=== PATIENT | female | born 1945 | race Caucasian/White ===

== ENCOUNTER 2022-05-01 14:02 | Emergency (ER) | payer SELFPAY ==
[~2022-05-01] VITALS: Ht 160 cm; Wt 63.5 kg
[2022-05-01 14:56] LABS: BASOPHILS ABSOLUTE AUTO 0.01 K/mm3 (0.00-0.23); BASOPHILS PERCENT AUTO 0 % (0-2); EOSINOPHILS PERCENT AUTO 0 % (0-6); Hematocrit 41.1 % (33.0-51.0); Hemoglobin 13.6 g/dL (11.5-16.0); IMMATURE GRAN ABSOLUTE AUTO 0.03 K/mm3 (0.00-0.10); IMMATURE GRAN PERCENT AUTO 0 % (0-1); LYMPHOCYTES ABSOLUTE AUTO 2.47 K/mm3 (0.84-5.20); LYMPHOCYTES PERCENT AUTO 23 % (21-46); MONOCYTES ABSOLUTE AUTO 0.57 K/mm3 (0.16-1.47); MONOCYTES PERCENT AUTO 5 % (4-13); Mean Corpuscular HGB 28.5 pg (26.0-34.0); Mean Corpuscular HGB Conc 33.1 g/dL (31.5-36.5); Mean Corpuscular Volume 86 fL (80-100); Mean Platelet Volume 9.4 fL (9.1-12.4); NEUTROPHILS ABSOLUTE AUTO 7.52 K/mm3 (1.96-9.15); NEUTROPHILS PERCENT AUTO 71 % (41-73); Platelet Count 317 K/mm3 (150-400); RDW Standard Deviation 47.3 fL (35.1-46.3); Red Blood Cell Count 4.78 M/mm3 (3.80-5.20)
[2022-05-01 15:15] LABS: Albumin, Blood 3.7 g/dL (3.4-5.0); Bilirubin, Total 0.4 mg/dL (0.1-1.0); Bun/Creatinine Ratio 22.2 (12.0-20.0); Calcium, Blood 9.4 mg/dL (8.5-10.1); Creatinine, Blood 0.95 mg/dL (0.40-1.00); Globulin, Blood 3.8 g/dL (2.2-4.0); Potassium, Blood 4.1 mmol/L (3.5-5.5); Total Protein, Blood 7.5 g/dL (6.4-8.2)
[2022-05-01] MEDS ORDERED: METF500 PO (18:36)
[2022-05-01] MEDS ORDERED: ATOR10 PO (18:36)
[2022-05-01] MEDS ORDERED: GABA100 PO (18:36)
[2022-05-01] MEDS ORDERED: DULO30 PO (18:37)
[2022-05-01] MEDS ORDERED: ASPI81CH (18:37)
[2022-05-01] MEDS ORDERED: AMLO10 PO (18:37)
[2022-05-01] MEDS ORDERED: PHENA200 PO (18:37)
[2022-05-01] MEDS ORDERED: Bentyl10 MG PO (18:38)
[2022-05-01] MEDS ORDERED: DICY20 PO (18:54)
[2022-05-01] MEDS ORDERED: GABA300 PO (18:54)
== END 2022-05-01 19:16 | disposition home or self-care (01) ==
LOC: ER 14:02
PROVIDERS: Physician Assistant
DX: R29.6 Repeated falls (principal); E11.40 Type 2 diabetes mellitus with diabetic neuropathy, unspecified; K58.9 Irritable bowel syndrome, unspecified; N30.10 Interstitial cystitis (chronic) without hematuria; Z88.0 Allergy status to penicillin; Z79.84 Long term (current) use of oral hypoglycemic drugs
CPT/HCPCS: 80053; 85025; 93005; 93010

== ENCOUNTER 2023-03-25 16:23 | Emergency (ER) | payer OTHER, BC ==
[~2023-03-25] VITALS: Ht 160 cm; Wt 68.0 kg
[~2023-03-25 16:23] MED LIST: AMLO10 PO; ASPI81CH; ATOR10 PO; Bentyl10 MG PO; DICY20 PO; DULO30 PO; GABA100 PO; GABA300 PO; METF500 PO; PHENA200 PO
[2023-03-25] MEDS ORDERED: IBUP800 PO (20:58)
[2023-03-25] MEDS ORDERED: AMLO5 PO (20:58)
[2023-03-25] MEDS ORDERED: FAMO20 PO (20:58)
[2023-03-25] MEDS ORDERED: Percocet 5-3251 EACH PO (20:58)
[2023-03-25] MEDS ORDERED: ONDA4ODT MM (20:58)
[2023-03-25 22:16] VITALS: BP 165/67
== END 2023-03-25 23:16 | disposition home or self-care (01) ==
LOC: ER 16:23
DX: S32.018A Other fracture of first lumbar vertebra, initial encounter for closed fracture (principal); I10 Essential (primary) hypertension; E11.9 Type 2 diabetes mellitus without complications; Z88.0 Allergy status to penicillin; Z79.84 Long term (current) use of oral hypoglycemic drugs; Z79.899 Other long term (current) drug therapy; W01.0XXA Fall on same level from slipping, tripping and stumbling without subsequent striking against object, initial encounter
CPT/HCPCS: 72128; 72131; 96374; 96375; 99284-25; A9270; J1170; J1885; J2405

== ENCOUNTER 2023-03-29 17:09 | Emergency (ER) | payer MEDICARE ==
[~2023-03-29] VITALS: Ht 162.6 cm; Wt 63.5 kg
[~2023-03-29 17:09] MED LIST changes: +AMLO5 PO; +FAMO20 PO; +IBUP800 PO; +ONDA4ODT MM; +Percocet 5-3251 EACH PO
[2023-03-29] MEDS ORDERED: ONDA4ODT MM (18:17)
[2023-03-29] MEDS ORDERED: Percocet 5-3251 EACH PO (18:17)
[2023-03-29 19:22] VITALS: BP 184/60
== END 2023-03-29 22:09 | disposition home or self-care (01) ==
LOC: ER 17:09
DX: M54.50 Low back pain, unspecified (principal); R11.2 Nausea with vomiting, unspecified; S32.009D Unspecified fracture of unspecified lumbar vertebra, subsequent encounter for fracture with routine healing; K59.03 Drug induced constipation; T40.2X5A Adverse effect of other opioids, initial encounter; I10 Essential (primary) hypertension; E11.9 Type 2 diabetes mellitus without complications; X58.XXXD Exposure to other specified factors, subsequent encounter; Z88.0 Allergy status to penicillin; Z79.899 Other long term (current) drug therapy; Z79.84 Long term (current) use of oral hypoglycemic drugs; Z79.82 Long term (current) use of aspirin
CPT/HCPCS: 99284; A9270

== ENCOUNTER 2023-04-01 16:01 | Emergency (ER) | payer MEDICARE ==
[~2023-04-01] VITALS: Ht 160 cm; Wt 63.5 kg
[2023-04-01 16:35] LABS: BASOPHILS ABSOLUTE AUTO 0.02 K/mm3 (0.00-0.23); BASOPHILS PERCENT AUTO 0 % (0-2); EOSINOPHILS PERCENT AUTO 0 % (0-6); Hematocrit 40.3 % (33.0-51.0); Hemoglobin 13.6 g/dL (11.5-16.0); IMMATURE GRAN ABSOLUTE AUTO 0.04 K/mm3 (0.00-0.10); IMMATURE GRAN PERCENT AUTO 0 % (0-1); LYMPHOCYTES ABSOLUTE AUTO 2.53 K/mm3 (0.84-5.20); LYMPHOCYTES PERCENT AUTO 21 % (21-46); MONOCYTES ABSOLUTE AUTO 1.05 K/mm3 (0.16-1.47); MONOCYTES PERCENT AUTO 9 % (4-13); Mean Corpuscular HGB 28.4 pg (26.0-34.0); Mean Corpuscular HGB Conc 33.7 g/dL (31.5-36.5); Mean Corpuscular Volume 84 fL (80-100); Mean Platelet Volume 9.6 fL (9.1-12.4); NEUTROPHILS ABSOLUTE AUTO 8.49 K/mm3 (1.96-9.15); NEUTROPHILS PERCENT AUTO 70 % (41-73); Platelet Count 494 K/mm3 (150-400); RDW Coefficient Variation 14.6 % (11.7-14.2); RDW Standard Deviation 44.6 fL (35.1-46.3); Red Blood Cell Count 4.79 M/mm3 (3.80-5.20); White Blood Cell Count 12.13 K/mm3 (4.00-11.30)
[2023-04-01 16:53] LABS: Albumin, Blood 3.5 g/dL (3.4-5.0); Albumin/Globulin Ratio 0.8 (0.8-1.8); Bilirubin, Total 0.6 mg/dL (0.1-1.0); Bun/Creatinine Ratio 24.8 (12.0-20.0); Calcium, Blood 9.3 mg/dL (8.5-10.1); Creatinine, Blood 0.97 mg/dL (0.40-1.00); Globulin, Blood 4.2 g/dL (2.2-4.0); Total Protein, Blood 7.7 g/dL (6.4-8.2)
[2023-04-01 20:57] LABS: Influenza A, PCR NEGATIVE (NEGATIVE); Influenza B, PCR NEGATIVE (NEGATIVE); Resp Syncytial Virus, PCR NEGATIVE (NEGATIVE); SARS-Cov-2 (COVID-19) PCR, MMC NEGATIVE (NEGATIVE)
[2023-04-02] MEDS ORDERED: Klor-Con 1010 MEQ PO (17:20)
[2023-04-02 17:51] VITALS: BP 145/67
== END 2023-04-02 18:23 ==
LOC: ER 16:01
PROVIDERS: Emergency Medicine
DX: R10.9 Unspecified abdominal pain (principal); K52.9 Noninfective gastroenteritis and colitis, unspecified; E87.6 Hypokalemia; I10 Essential (primary) hypertension; Z88.0 Allergy status to penicillin; Z79.899 Other long term (current) drug therapy; Z11.52 Encounter for screening for COVID-19
CPT/HCPCS: 0241U; 80053; 83690; 85025; 96374; 96375; 96376; 97161; 97530; 99284-25; A9270; J2405; J3010

== ENCOUNTER 2023-08-12 05:13 | Inpatient (IN) | payer MEDICARE ==
[~2023-08-12] VITALS: Ht 162.6 cm; Wt 63.2 kg
[~2023-08-12 05:13] MED LIST changes: +Klor-Con 1010 MEQ PO
[2023-08-12] MEDS ORDERED: NS 1,000 ML IV SCH (05:25)
[2023-08-12 05:48] LABS: BASOPHILS ABSOLUTE AUTO 0.01 K/mm3 (0.00-0.23); BASOPHILS PERCENT AUTO 0 % (0-2); EOSINOPHILS PERCENT AUTO 0 % (0-6); Hematocrit 23.5 % (33.0-51.0); Hemoglobin 6.8 g/dL (11.5-16.0); IMMATURE GRAN ABSOLUTE AUTO 0.04 K/mm3 (0.00-0.10); IMMATURE GRAN PERCENT AUTO 0 % (0-1); LYMPHOCYTES ABSOLUTE AUTO 2.15 K/mm3 (0.84-5.20); LYMPHOCYTES PERCENT AUTO 17 % (21-46); MONOCYTES ABSOLUTE AUTO 0.86 K/mm3 (0.16-1.47); MONOCYTES PERCENT AUTO 7 % (4-13); Mean Corpuscular HGB 21.2 pg (26.0-34.0); Mean Corpuscular HGB Conc 28.9 g/dL (31.5-36.5); Mean Corpuscular Volume 73 fL (80-100); Mean Platelet Volume 10.6 fL (9.1-12.4); NEUTROPHILS PERCENT AUTO 75 % (41-73); Platelet Count 425 K/mm3 (150-400); RDW Coefficient Variation 15.3 % (11.7-14.2); RDW Standard Deviation 40.6 fL (35.1-46.3); Red Blood Cell Count 3.21 M/mm3 (3.80-5.20); White Blood Cell Count 12.36 K/mm3 (4.00-11.30)
[2023-08-12 06:06] LABS: Albumin, Blood 2.6 g/dL (3.4-5.0); Albumin/Globulin Ratio 0.7 (0.8-1.8); Bilirubin, Total 0.2 mg/dL (0.1-1.0); Bun/Creatinine Ratio 16.5 (12.0-20.0); Calcium, Blood 8.5 mg/dL (8.5-10.1); Creatinine, Blood 0.91 mg/dL (0.40-1.00); Globulin, Blood 3.6 g/dL (2.2-4.0); Potassium, Blood 3.1 mmol/L (3.5-5.5); Total Protein, Blood 6.2 g/dL (6.4-8.2)
[2023-08-12] MEDS ORDERED: Pantoprazole Sodium 40 MG Injection IV ONE (08:15)
[2023-08-12] MEDS ORDERED: Pantoprazole Sodium 40 MG in NS 50 ML IV SCH (08:15)
[2023-08-12] MEDS ORDERED: [UNRECOGNIZED DRUG - OTHER] IV ONE (08:15)
[2023-08-12] MEDS ORDERED: POTASSIUM CHL IV ONE (08:15)
[2023-08-12] MEDS ORDERED: NS 1,000 ML IV ONE ×2 (08:31→09:16)
[2023-08-12] MEDS ORDERED: Potassium Chl 10MEQ/Water100ML 100 ML IV SCH (11:15)
[2023-08-12] MEDS ORDERED: TraMADol HCl 50 MG Tab PO PRN (11:40)
[2023-08-12] MEDS ORDERED: Acetaminophen 325 MG TABLET PO PRN (11:40)
[2023-08-12] MEDS ORDERED: Sod Ferric Gluc Complx/Sucrose 125 MG in NS 100 ML IV SCH (12:00)
[2023-08-12 13:38] VITALS: BP 153/82
[2023-08-12 14:12] VITALS: BP 173/67
[2023-08-12 15:19] LABS: Adenovirus F 40/41 Not Detected (NOT DETECT); Astrovirus Not Detected (NOT DETECT); Campylobacter Sp Not Detected (NOT DETECT); Cryptosporidium Not Detected (NOT DETECT); Cyclospora Cayetanensis Not Detected (NOT DETECT); E. Coli O157 Not Detected (NOT DETECT); Entamoeba Histolytica Not Detected (NOT DETECT); Enteroaggregative E. coli-EAEC Not Detected (NOT DETECT); Enteropathogenic E. coli-EPEC Not Detected (NOT DETECT); Enterotoxigenic E. coli-ETEC Not Detected (NOT DETECT); Giardia Lamblia Not Detected (NOT DETECT); Norovirus GI/GII Not Detected (NOT DETECT); Plesiomonas Shigelloides Not Detected (NOT DETECT); Rotavirus A Not Detected (NOT DETECT); Salmonella Sp Not Detected (NOT DETECT); Sapovirus Not Detected (NOT DETECT); Shiga Toxin-prod E. coli-STEC Not Detected (NOT DETECT); Shigella/Enteroin E. coli-EIEC Not Detected (NOT DETECT); Vibrio Cholerae Not Detected (NOT DETECT); Vibrio Sp Not Detected (NOT DETECT); Yersinia Enterocolitica Not Detected (NOT DETECT)
[2023-08-12 15:39] VITALS: BP 181/65
[2023-08-12] MEDS ORDERED: Insulin Regular 100 UNIT/ML 10ML Vial SC SCH (16:30)
[2023-08-12] MEDS ORDERED: GABA300 PO (16:39)
[2023-08-12] MEDS ORDERED: MESA250ER PO (16:41)
[2023-08-12] MEDS ORDERED: TRAZ100 PO (16:41)
[2023-08-12] MEDS ORDERED: HYDR1TAB94 PO (16:46)
[2023-08-12] MEDS ORDERED: HydrALAZINE HCl 20 MG / ML 1ML Vial IV PRN (16:50)
--- NOTE | 2023-08-12 17:36 | NUR ---
SUMMARY- NO ACUTE EVENTS SINCE TRANSFER TO MEDICAL FLOOR. PT DENIES PAIN. PT IS ON AIRVO AT 43% AND 30L. PT DENIES SOB. THIS RN EXPLAINED IN DETAIL ABOUT THE PT CHANGING TO COMFORT CARE-THIS WAS DISCUSSED WITH PT AND 3 CHILDREN PRESENT. AAOX4. X1 TO THE BSC.
--- NOTE | 2023-08-12 17:50 | NUR ---
SUMMARY- NO ACUTE EVENTS THIS SHIFT. PT HAD MINIMAL COMPLAINTS OF ABD PAIN-HEATING PAD GIVEN-WHICH HELPED. PT AAOX4. X1 TO BSC WITH WALKER. PT ON RA. TYLENOL GIVEN FOR BACK PAIN THIS SHIFT, WHICH PT STATED HELPED WITH THE PAIN CONTROL.
[2023-08-12 19:03] LABS: Hemoglobin 10.5 g/dL (11.5-16.0)
[2023-08-12 19:27] VITALS: BP 146/60
[2023-08-12] MEDS ORDERED: TraZODone HCl 100 MG Tab PO ONE (23:10)
[2023-08-13 04:29] VITALS: BP 132/70
[2023-08-13 04:59] LABS: BASOPHILS ABSOLUTE AUTO 0.01 K/mm3 (0.00-0.23); BASOPHILS PERCENT AUTO 0 % (0-2); EOSINOPHILS PERCENT AUTO 0 % (0-6); Hematocrit 30.7 % (33.0-51.0); Hemoglobin 9.7 g/dL (11.5-16.0); IMMATURE GRAN ABSOLUTE AUTO 0.07 K/mm3 (0.00-0.10); IMMATURE GRAN PERCENT AUTO 1 % (0-1); LYMPHOCYTES ABSOLUTE AUTO 1.66 K/mm3 (0.84-5.20); LYMPHOCYTES PERCENT AUTO 14 % (21-46); MONOCYTES ABSOLUTE AUTO 0.82 K/mm3 (0.16-1.47); MONOCYTES PERCENT AUTO 7 % (4-13); Mean Corpuscular HGB 23.7 pg (26.0-34.0); Mean Corpuscular HGB Conc 31.6 g/dL (31.5-36.5); Mean Corpuscular Volume 75 fL (80-100); NEUTROPHILS ABSOLUTE AUTO 9.28 K/mm3 (1.96-9.15); NEUTROPHILS PERCENT AUTO 78 % (41-73); Platelet Count 357 K/mm3 (150-400); RDW Coefficient Variation 15.9 % (11.7-14.2); RDW Standard Deviation 43.3 fL (35.1-46.3); White Blood Cell Count 11.84 K/mm3 (4.00-11.30)
[2023-08-13 05:18] LABS: Bun/Creatinine Ratio 13.5 (12.0-20.0); Calcium, Blood 8.8 mg/dL (8.5-10.1); Creatinine, Blood 0.67 mg/dL (0.40-1.00); Potassium, Blood 3.2 mmol/L (3.5-5.5)
[2023-08-13] MEDS ORDERED: Peg/Electrolytes 4,000 ML BTL PO ONE (06:00)
--- NOTE | 2023-08-13 06:49 | NUR ---
SHIFT SUMMARY PT WAS INSISTANT SHE IS COMPLETELY INCONTINENT, ALTHOUGH DAYSHIFT REPORT INDICATED SHE WAS CONTINENT OF BOWELS TO THE COMMODE. SHE SLEPT AFTER ADMINISTRATION OF TRAZODONE FOR SLEEP.
[2023-08-13 07:28] VITALS: BP 150/64
[2023-08-13] MEDS ORDERED: Potassium Chloride 20 MEQ TabCR PO ONE (08:25)
[2023-08-13] MEDS ORDERED: AmLODIPine Besylate 5 MG Tab PO SCH (09:00)
[2023-08-13] MEDS ORDERED: Polyethylene Glycol 3350 17 gm PO ONE (09:00)
[2023-08-13 16:03] VITALS: BP 144/80
[2023-08-13] MEDS ORDERED: POLYETHYLENE GLYCOL PO SCH (18:00)
--- NOTE | 2023-08-13 18:05 | NUR ---
SUMMARY- AAOX3. PT IS HEALTH ILLITERATE. PT IS NOT ORIENTED COMPLETELY TO SITUATION. PT REFUSED GOLYTELY THIS MORNING. PT COMPLAINED OF CUELLAR PAIN TODAY, BUT TYLENOL HELPED IMPROVE PAIN LEVEL. PT TOLERATING CLEAR LIQUID DIET. PT WAS A X2 MAX ASSIST TO THE BSC. STAFF USED A BEDPAN FOR THE REMAINDER OF THE SHIFT FOR SAFETY. PT IS UNABLE TO STAND UP AND HELP TRANSFER IN ANY WAY. PT IS ON ROOM AIR.
[2023-08-13 20:41] VITALS: BP 147/55
[2023-08-14] VITALS (27 sets, daily range): BP systolic 111–189; BP diastolic 53–132
--- NOTE | 2023-08-14 04:21 | NUR ---
SHIFT SUMMARY 78 YR F ADMITTED ON 08/13/23. DNR. PT HAS BEEN TAKING MIRALAX IN PREPARATION FOR A COLONOSCOPY TODAY. SHE HAS HAD ABOUT 8 BM'S THIS SHIFT AND IS UNABLE TO USE BEDSIDE COMMODE DUE TO WEAKNESS. SHE REFUSES TO USE A BEDPAN STATING THAT IT IS UNCOMFORTABLE AND INSTEAD IS HAVING INCONTINENT BM'S IN A BRIEF. SHE IS BEING CHANGED OFTEN AND THERE IS CONCERN FOR EXCORIATION. SHE IS INFUSING PROTONIX AT 10 ML/HR. SHE IS COOPERATIVE WITH CARE BUT DOES SEEM A BIT CONFUSED ABOUT WHAT IS GOING ON WITH HER. SHE STATED THAT SHE WANTS ANSWERS.
[2023-08-14 05:07] LABS: BASOPHILS PERCENT AUTO 0 % (0-2); EOSINOPHILS PERCENT AUTO 0 % (0-6); Hematocrit 32.1 % (33.0-51.0); IMMATURE GRAN ABSOLUTE AUTO 0.05 K/mm3 (0.00-0.10); IMMATURE GRAN PERCENT AUTO 0 % (0-1); LYMPHOCYTES PERCENT AUTO 15 % (21-46); MONOCYTES ABSOLUTE AUTO 0.85 K/mm3 (0.16-1.47); MONOCYTES PERCENT AUTO 7 % (4-13); Mean Corpuscular HGB 23.6 pg (26.0-34.0); Mean Corpuscular HGB Conc 31.2 g/dL (31.5-36.5); Mean Corpuscular Volume 76 fL (80-100); Mean Platelet Volume 11.2 fL (9.1-12.4); NEUTROPHILS ABSOLUTE AUTO 8.92 K/mm3 (1.96-9.15); NEUTROPHILS PERCENT AUTO 77 % (41-73); Platelet Count 472 K/mm3 (150-400); RDW Coefficient Variation 17.1 % (11.7-14.2); RDW Standard Deviation 46.4 fL (35.1-46.3); Red Blood Cell Count 4.23 M/mm3 (3.80-5.20); White Blood Cell Count 11.52 K/mm3 (4.00-11.30)
[2023-08-14 05:29] LABS: Bun/Creatinine Ratio 7.9 (12.0-20.0); Calcium, Blood 8.9 mg/dL (8.5-10.1); Creatinine, Blood 0.63 mg/dL (0.40-1.00); Potassium, Blood 3.7 mmol/L (3.5-5.5)
[2023-08-14] MEDS ORDERED: NS 50 ML IV ONE (07:50)
--- NOTE | 2023-08-14 14:37 | NUR ---
1320 LATE ENTRY- DR. ORTEZ NOTIFIED PT STILL HAVING SOME BEIGH COLORED STOOL. PER DR. ORTEZ, GIVE 2 TAP WATER ENEMA NOW.
--- NOTE | 2023-08-14 14:40 | NUR ---
2 ENEMAS COMPLETED. LOTS OF TRANSLUCENT WATERY STOOL WITH FEW CHUNKS.
[2023-08-14] MEDS ORDERED: Lactated Ringer's 1,000 ML IV SCH (16:05)
--- NOTE | 2023-08-14 16:21 | NUR ---
PT ALERT AND ORIENTED X4. BLOOD OXYGEN LEVEL 97% ON ROOM AIR. AT 9:17 COMPLAINED OF 5/10w ABDOMENAL DISCOMFORT AND WAS GIVEN TYLENOL 650MG. UPON REASSESS THERE WAS NO RELIEF. PT WAS NPO EXCEPT FOR SIPS OF WATER AND ICE CHIPS UNTIL NOON AND THEN STRICTLY NPO. SHE HAD LIQUID, BEIGE INCONTINENT STOOLS ALL MORNING. AT 14:10 TWO WARM WATER ENEMAS WERE DONE WITH MOSTLY CLEAR RESULTS, A FEW FLECKS OF STOOL NOTED AND REPORTED TO DAY SURGERY. ABDOMEN SOFT, ACTIVE BOWEL TONES. 1400 PT COMPLAINED OF A HEADACHE AND WAS GIVEN TRAMADOL 50MG. UPON RECHECK THE CHECO WAS NOT EFFECTIVE. SHE WAS GIVEN A COOL CLOTH AT HER REQUEST. SHE WAS TAKEN TO DAY SURGERY AT 4:40. NO INSULIN COVERAGE WAS INDICATED MORNING OR AT NOON. PT REPORTED THAT SHE WASN'T ABLE TO ASSIST WITH A TRANSFER FROM BED TO COMMODE LAST NIGHT AND FEELS THAT "I CAN'T STAND TODAY EITHER...MY LEGS ARE WEAK."
[2023-08-14] MEDS ORDERED: propofoL 40 ML IV ONE (16:46)
--- NOTE | 2023-08-14 16:58 | NUR ---
PT TO DAY SURGERY FOR EGD AND COLONOSCOPY. PLAN OF CARE DISCUSSED. PT HERE WITH HER SON.
--- NOTE | 2023-08-14 16:59 | NUR ---
PT TO DAY SURGERY WITH 20G IV IN RIGHT FA
--- NOTE | 2023-08-14 17:09 | NUR ---
08/14/23 1709 Ale Easley HISTORY, CHART, MEDICATIONS AND ALLERGIES REVIEWED BEFORE START OF PROCEDURE. PATIENT CONFIRMS NPO STATUS AND AGREES WITH SCHEDULED PROCEDURE. 3-LEAD EKG REVIEWED WITH PHYSICIAN PRIOR TO START OF PROCEDURE. MONITOR INTACT WITH CONTINUOUS PULSE OXIMETRY,CAPNOGRAPHY, 3-LEAD EKG, INTERMITTENT BP. SUPPLEMENTAL O2 TO BE TITRATED THROUGHOUT PROCEDURE TO MAINTAIN O2 SATURATION ABOVE 90%. PATIENT DETERMINED TO BE ASA APPROPRIATE FOR PROPOFOL SEDATION PRIOR TO START OF PROCEDURE BY .MALLAMPATI CLASS 3 AIRWAY: VISUALIZATION OF ONLY THE BASE OF THE UVULA.
[2023-08-14] MEDS ORDERED: Glycopyrrolate 0.2 MG/ML 1MLVIAL ONE (17:22)
[2023-08-14] MEDS ORDERED: Midazolam HCl 1MG / ML 2ML Vial ONE (17:23)
[2023-08-14] MEDS ORDERED: DiphenhydrAMINE HCl 50 MG Cap PO ONE (22:50)
[2023-08-15 03:58] VITALS: BP 171/66
--- NOTE | 2023-08-15 04:48 | NUR ---
SHIFT SUMMARY: JOHN IS A&OX4. VSS, BP ELEVATED, MEDICATED PER JUN. PT WOULD NOT ALLOW BP RECHECK, WILL ATTEMPT AGAIN PRIOR TO GIVING REPORT. SHE IS TOLERATING CLEAR LIQUIDS WELL. PT STATED THAT SHE URINATES FREQUENTLY. ATTEMPTED TO USE PUREWICK TO ALLOW PT TO REST. UNFORTUNATELY, PT CONTINUED TO CALL AND STATE THAT SHE WAS WET, PUREWICK FOUND OUT OF PLACE DURING ATTENDS CHANGES. SUCTION TUBING AND PUREWICK TESTED, FOUND TO BE IN WORKING ORDER. PT IS ABLE TO MAKE HER NEEDS KNOWN AND IS ABLE TO USE THE CALL LIGHT APPROPRIATELY. IV TO RIGHT FOREARM PATENT. PT C/O ITCHING SINCE UNDERGOING THE ENDOSCOPY, CONTACTED HOSPITALIST AND WAS GIVEN AN ORDER FOR DIPHENHYDRAMINE WHICH PT STATED WAS EFFECTIVE. SHE IS LYING IN BED WITH THE CALL LIGHT IN REACH, BED IN LOWEST POSITION. WILL GIVE REPORT TO DAY SHIFT RN.
[2023-08-15 05:02] VITALS: BP 134/73
[2023-08-15 05:14] LABS: BASOPHILS ABSOLUTE AUTO 0.01 K/mm3 (0.00-0.23); BASOPHILS PERCENT AUTO 0 % (0-2); EOSINOPHILS PERCENT AUTO 0 % (0-6); Hematocrit 32.9 % (33.0-51.0); Hemoglobin 10.3 g/dL (11.5-16.0); IMMATURE GRAN ABSOLUTE AUTO 0.08 K/mm3 (0.00-0.10); IMMATURE GRAN PERCENT AUTO 1 % (0-1); LYMPHOCYTES ABSOLUTE AUTO 2.44 K/mm3 (0.84-5.20); LYMPHOCYTES PERCENT AUTO 24 % (21-46); MONOCYTES ABSOLUTE AUTO 0.98 K/mm3 (0.16-1.47); MONOCYTES PERCENT AUTO 10 % (4-13); Mean Corpuscular HGB 23.6 pg (26.0-34.0); Mean Corpuscular HGB Conc 31.3 g/dL (31.5-36.5); Mean Corpuscular Volume 76 fL (80-100); Mean Platelet Volume 10.8 fL (9.1-12.4); NEUTROPHILS ABSOLUTE AUTO 6.69 K/mm3 (1.96-9.15); NEUTROPHILS PERCENT AUTO 66 % (41-73); Platelet Count 458 K/mm3 (150-400); RDW Coefficient Variation 18.1 % (11.7-14.2); RDW Standard Deviation 47.7 fL (35.1-46.3); Red Blood Cell Count 4.36 M/mm3 (3.80-5.20)
[2023-08-15 05:38] LABS: Bun/Creatinine Ratio 7.7 (12.0-20.0); Calcium, Blood 9.1 mg/dL (8.5-10.1); Creatinine, Blood 0.65 mg/dL (0.40-1.00); Potassium, Blood 4.2 mmol/L (3.5-5.5)
[2023-08-15] MEDS ORDERED: Pantoprazole Sodium 20 MG Tab PO SCH (06:00)
[2023-08-15 07:45] VITALS: BP 146/70
--- NOTE | 2023-08-15 16:25 | NUR ---
PT IS AOX4 AND COOPERATIVE OF CARE. PT IS BEDREST AND INCONTENT. PT IS ABLE TO MAKE ALL NEEDS KNOWN. PT CURRENTLY ON CLEARS AND WILL START BOWEL PREP THIS EVENING FOR A SCOPE WITH DR SUE TOMORROW. CALL LIGHT IS WITHIN REACH WILL CONTINUE TO MONITOR.
[2023-08-15 18:00] VITALS: BP 169/69
[2023-08-15] MEDS ORDERED: Peg/Electrolytes 4,000 ML BTL PO SCH (18:00)
[2023-08-15] MEDS ORDERED: Ondansetron HCl 2 MG / ML 2ML Vial IV PRN (18:05)
--- NOTE | 2023-08-15 19:45 | NUR ---
RECEIVED REPORT AND ASSUMED CARE OF PT. PT CALLED STAFF TO ROOM VIA CALL LIGHT AND STATED "I'M A MESS". ATTENDS AND LINEN CHANGE PROVIDED. CAPSULE FOUND IN PT'S BED, PT STATED THAT IT WAS A MEDICATION SHE BROUGHT FROM HOME. EDUCATED PT ON IMPORTANCE OF NOT TAKING MEDICATIONS FROM HOME, ESPECIALLY WHEN PT IS BEING PREPPED FOR A PROCEDURE. PT DENIES TAKING ANY OTHER HOME MEDICATIONS.
[2023-08-15 20:37] VITALS: BP 148/76
[2023-08-15] MEDS ORDERED: TraZODone HCl 100 MG Tab PO SCH (23:05)
[2023-08-16] VITALS (21 sets, daily range): BP systolic 93–158; BP diastolic 51–94
--- NOTE | 2023-08-16 06:20 | NUR ---
SHIFT SUMMARY: JOHN IS A&OX4. VSS, NO ACUTE EVENTS OVERNIGHT. PT WAS ABLE TO DRINK THE FIRST JUG OF GOLYTELY, AWARE THAT SECOND DOSE IS SCHEDULED FOR 0800 WITH THE PLAN TO BE NPO AT NOON. PT'S STOOL HAS BECOME MORE LIQUID AND PRIVATE EQUITY ASSOCIATE BROWN OVER THE SHIFT, NO BLOOD VISUALIZED IN STOOL. PT WAS CHANGED TO WATER AND ICE CHIPS ONLY AT MIDNIGHT. ATTENDS IN PLACE. IV TO RIGHT FOREARM PATENT. SHE IS LYING IN BED WITH THE CALL LIGHT IN REACH, BED IN LOWEST POSITION. WILL GIVE REPORT TO DAY SHIFT RN.
[2023-08-16] MEDS ORDERED: Peg/Electrolytes 4,000 ML BTL PO ONE (08:00)
[2023-08-16] MEDS ORDERED: AMLODIPINE BESYL5 MG PO (14:11)
[2023-08-16] MEDS ORDERED: Natrol Alpha 3300 MG PO (14:13)
--- NOTE | 2023-08-16 14:29 | NUR ---
NOTE: PATIENT LEFT THE ROOM AT THIS TIME TO DAY SURGERY FOR COLONOSCOPY.
--- NOTE | 2023-08-16 14:48 | NUR ---
PT TO DAY SURGERY WITH 20G IV IN RIGHT FA.
[2023-08-16] MEDS ORDERED: Lactated Ringer's 1,000 ML IV SCH (14:50)
[2023-08-16] MEDS ORDERED: propofoL 20 ML IV ONE (14:52)
--- NOTE | 2023-08-16 15:26 | NUR ---
08/16/23 1526 Brian Osborn HISTORY, CHART, MEDICATIONS AND ALLERGIES REVIEWED BEFORE START OF PROCEDURE. PATIENT CONFIRMS NPO STATUS AND AGREES WITH SCHEDULED PROCEDURE. 3-LEAD EKG REVIEWED WITH PHYSICIAN PRIOR TO START OF PROCEDURE. MONITOR INTACT WITH CONTINUOUS PULSE OXIMETRY,CAPNOGRAPHY, 3-LEAD EKG, INTERMITTENT BP. SUPPLEMENTAL O2 TO BE TITRATED THROUGHOUT PROCEDURE TO MAINTAIN O2 SATURATION ABOVE 90%. PATIENT DETERMINED TO BE ASA APPROPRIATE FOR PROPOFOL SEDATION PRIOR TO START OF PROCEDURE BY DR. ORTEZ.
[2023-08-16] MEDS ORDERED: Lidocaine 2% Jelly Uro-Jet ONE (15:35)
--- NOTE | 2023-08-16 15:57 | NUR ---
NOTE: PATIENT ARRIVES IN ROOM AT 1550 FROM POST-OP COLONOSCOPY DONE. PATIENT TRANSFERRED TO BED USING SLIDER SHEET c 2 MAX ASSIST. RECEIVED BEDSIDE REPORTS FROM DAY SURGERY RN, DIANA. PATIENT A/OX4. DENIES PAIN AT THIS TIME. POST-OP VITALS TAKEN. SCD'S IN PLACED TO BLE'S. BED ALARM ON FOR SAFETY. CALL LIGHT IN REACH.
--- NOTE | 2023-08-16 17:18 | NUR ---
SHIFT SUMMARY: PATIENT A/OX4, ANSWER TO QUESTIONS APPROPRIATELY AND ABLE TO MAKE NEEDS KNOWN. PATIENT REPORTS CUELLAR 10/06, MEDICATED c PRN PAIN MEDS c GOOD EFFECT. PATIENT HAD COLONOSCOPY DONE THIS PM AND TOLERATED WELL. POST-OP VITALS TAKEN. PATIENT BEDREST, INCONTINENCE OF BOWELS/BLADDER, ATTENDS PLACED AND CHANGED T/O SHIFT. PATIENT DIET WAS CHANGED TO CONS CARBS c BS ACHS. PATIENT DENIES CP/PRESSURE, SOB AND DIZZINESS. PATIENT HAS NO COMPLAINTS OR DENIES NEW CONCERNED THIS SHIFT. VITAL SIGNS REVIEWED. CALL LIGHT IN REACH.
[2023-08-16] MEDS ORDERED: TraZODone HCl 100 MG Tab PO SCH (21:00)
[2023-08-17 03:26] VITALS: BP 172/73
[2023-08-17 03:34] LABS: Hematocrit 30.9 % (33.0-51.0); Hemoglobin 9.5 g/dL (11.5-16.0); Mean Corpuscular HGB 24.2 pg (26.0-34.0); Mean Corpuscular HGB Conc 30.7 g/dL (31.5-36.5); Mean Corpuscular Volume 79 fL (80-100); Mean Platelet Volume 10.4 fL (9.1-12.4); Platelet Count 382 K/mm3 (150-400); RDW Standard Deviation 54.1 fL (35.1-46.3); Red Blood Cell Count 3.93 M/mm3 (3.80-5.20); White Blood Cell Count 8.34 K/mm3 (4.00-11.30)
[2023-08-17 03:54] LABS: Albumin, Blood 2.4 g/dL (3.4-5.0); Anion Gap 6 mmol/L (3-11); Blood Urea Nitrogen 8 mg/dL (8-24); Bun/Creatinine Ratio 8.6 (12.0-20.0); CO2, Blood 30 mmol/L (21-32); Calcium, Blood 8.7 mg/dL (8.5-10.1); Chloride, Blood 108 mmol/L (98-108); Creatinine, Blood 0.93 mg/dL (0.40-1.00); Glomerular Filtration Rate 62 (60-); Glucose, Blood 92 mg/dL (70-99); Phosphorus, Blood 3.4 mg/dL (2.5-4.9); Potassium, Blood 4.1 mmol/L (3.5-5.5); Sodium, Blood 140 mmol/L (136-145)
--- NOTE | 2023-08-17 05:41 | NUR ---
BOBJ DEVELOPER SUMMARY NO ACUTE CHANGES. PT IS A/OX4. PT REPORTS SHE HAS BEEN NON AMBULATORY SINCE FALLING LAST MARCH. PT IS INCONT OF BOWEL AND BLADDER. ABLE TO MAKE NEEDS KNOWN AND CALLS APPROPRIATELY. PT REPORTING HEADACHE T/O THE NIGHT. MED WITH TYLENOL PER JUN. PT REPORTS GOOD APPETITE AND DENIES ABD PAIN. CALL LIGHT IN REACH.
[2023-08-17 07:55] VITALS: BP 144/59
[2023-08-17] MEDS ORDERED: PANT20 PO (10:46)
--- NOTE | 2023-08-17 13:12 | NUR ---
SHIFT/DISCHARGE SUMMARY: PATIENT A/OX4, CALM, PLEASANT AND COOPERATIVE c CARE. PATIENT DENIES CP/PRESSURE, N/V, DIZZINESS AND SOB. PATIENT INCONTINENCE OF BOWELS/BLADDER, SIMEON CARE, ATTENDS CHANGED. PATIENT EATING AND DRINKING WELL. PATIENT STATED, "I'M READY TO GO HOME, WHENEVER YOU GUYS READY TO SEND ME HOME TODAY I'M GOOD TO GO, LET THE DRFederico KNOW." NOTIFIED DR. ESPINAL REGARDING PATIENT REQUEST DURING PATIENT ROUNDING THIS AM. PATIENT BS BEFORE LUNCH 158, REFUSED INSULIN COVERAGE. EDUCATE PATIENT THE RISK/BENIFITS OF REFUSING THE INSULIN COVERAGE. PATIENT VERBALIZED UNDERSTANDING AND NO FURTHER QUESTIONS AT THIS TIME. VITAL SIGNS REVIEWED. PIV TO R FOREARM WAS DC'D BY KALINA ALMEIDA. PATIENT DISCHARGE HOME. DISCHARGE INSTRUCTIONS PACKET GIVEN TO PATIENT. EDUCATE PATIENT REGARDING ADMITTING DX'S OF GI BLEED, S/S, TX, NEW PRESCRIBED RX AND TO FOLLOW UP c PCP. PATIENT VERBALIZED UNDERSTANDING, STATED "I ALREADY HAVE AN APPOINMENT THIS COMING SATURDAY c MY PCP." PATIENT HAS NO FURTHER QUESTIONS AT THIS TIME. RX WAS FAXED TO PATIENT PREFERRED PHARMACY-[facility] AT . ALL PATIENT PERSONAL BELONGINGS WERE SENT HOME c THE PATIENT. PATIENT LEFT THE ROOM AT 1245 AND WAS TRANSPORTED VIA WHEELCHAIR BY AZAR HERRERA TO [facility].
== END 2023-08-17 12:44 | disposition home or self-care (01) | DRG 811 ==
LOC: ER 05:13 → MEDS 05:14 → ENPENDDIS 08-17 11:36 → MEDS 08-17 12:44
PROVIDERS: Emergency Medicine; Internal Medicine; Internal Medicine Gastroenterology; ADMIT Family Medicine
PROC: 30233N1 Transfusion of Nonautologous Red Blood Cells into Peripheral Vein, Percutaneous Approach (ICD-10-PCS; 2023-08-12)
PROC: 0DB68ZX Excision of Stomach, Via Natural or Artificial Opening Endoscopic, Diagnostic (ICD-10-PCS; 2023-08-14)
PROC: 0DJD8ZZ Inspection of Lower Intestinal Tract, Via Natural or Artificial Opening Endoscopic (ICD-10-PCS; 2023-08-14)
PROC: 0DB98ZX Excision of Duodenum, Via Natural or Artificial Opening Endoscopic, Diagnostic (ICD-10-PCS; principal; 2023-08-14 16:00)
PROC: 0DJD8ZZ Inspection of Lower Intestinal Tract, Via Natural or Artificial Opening Endoscopic (ICD-10-PCS; 2023-08-16)
DX: D62 Acute posthemorrhagic anemia (principal); K25.4 Chronic or unspecified gastric ulcer with hemorrhage; I10 Essential (primary) hypertension; D50.9 Iron deficiency anemia, unspecified; E87.6 Hypokalemia; Z66 Do not resuscitate; K76.89 Other specified diseases of liver; K52.9 Noninfective gastroenteritis and colitis, unspecified; K64.4 Residual hemorrhoidal skin tags; I25.10 Atherosclerotic heart disease of native coronary artery without angina pectoris; M54.50 Low back pain, unspecified; D75.838 Other thrombocytosis; E86.0 Dehydration; G89.29 Other chronic pain; E11.40 Type 2 diabetes mellitus with diabetic neuropathy, unspecified; R29.6 Repeated falls; H26.9 Unspecified cataract; Z88.5 Allergy status to narcotic agent; Z88.1 Allergy status to other antibiotic agents; Z88.8 Allergy status to other drugs, medicaments and biological substances; Z90.710 Acquired absence of both cervix and uterus; Z90.79 Acquired absence of other genital organ(s); Z90.722 Acquired absence of ovaries, bilateral; Z87.891 Personal history of nicotine dependence; Z90.89 Acquired absence of other organs; Z90.49 Acquired absence of other specified parts of digestive tract; Z88.0 Allergy status to penicillin; I25.2 Old myocardial infarction; Z86.010 Personal history of colon polyps; Z86.73 Personal history of transient ischemic attack (TIA), and cerebral infarction without residual deficits; Z79.891 Long term (current) use of opiate analgesic; Z79.899 Other long term (current) drug therapy; Z87.81 Personal history of (healed) traumatic fracture
CPT/HCPCS: 36415; 36430; 74177; 76705; 80048; 80053; 80069; 82272; 82607; 82728; 82746; 82947; 83540; 83550; 83735; 85014; 85018; 85025; 85027; 86850; 86900; 86901; 86923; 87507; 88305; 88342; 96361; 96365-59; 96366; 96367; 96368; 96375; 96376; 99285-25; A9270; C9113; G0378; J0360; J1815; J2250; J2405; J2704; J2916; J3480; J7030; J7120; P9016; Q9967

== ENCOUNTER 2023-08-20 12:30 | Emergency (ER) | payer MEDICARE ==
[~2023-08-20] VITALS: Ht 160 cm; Wt 61.2 kg
[~2023-08-20 12:30] MED LIST changes: +AMLODIPINE BESYL5 MG PO; +HYDR1TAB94 PO; +MESA250ER PO; +Natrol Alpha 3300 MG PO; +PANT20 PO; +TRAZ100 PO
[2023-08-20] MEDS ORDERED: diphenhydrAMINE HCl 12.5 MG/5 ML 5MLUDC (Alcohol/Dye Free) PO ONE (13:05)
[2023-08-20] MEDS ORDERED: Acetamin/Butalbital/Caffeine Tab PO ONE (14:50)
[2023-08-20] MEDS ORDERED: HYDROcodone 5-APAP 325 TAB PO ONE (15:40)
[2023-08-20 16:30] VITALS: BP 129/81
[2023-08-20] MEDS ORDERED: ZEBUTAL 50-3251 EAC1 PO (16:44)
== END 2023-08-20 17:09 | disposition home or self-care (01) ==
LOC: ER 12:30
DX: R51.9 Headache, unspecified (principal); E11.9 Type 2 diabetes mellitus without complications; I10 Essential (primary) hypertension; Z88.0 Allergy status to penicillin; Z79.899 Other long term (current) drug therapy
CPT/HCPCS: 70450; 99284-25; A9270

== ENCOUNTER 2023-09-03 18:30 | Emergency (ER) | payer MEDICARE ==
[~2023-09-03] VITALS: Ht 160 cm; Wt 59.0 kg
[2023-09-04 07:23] VITALS: BP 157/62
== END 2023-09-04 11:35 | disposition home or self-care (01) ==
LOC: ER 18:30
DX: G45.3 Amaurosis fugax (principal); G89.29 Other chronic pain; M54.50 Low back pain, unspecified; I65.21 Occlusion and stenosis of right carotid artery; E11.9 Type 2 diabetes mellitus without complications; I10 Essential (primary) hypertension; Z74.1 Need for assistance with personal care; Z88.0 Allergy status to penicillin; Z79.899 Other long term (current) drug therapy

== ENCOUNTER → 2024-05-26 | Outpatient (CLI) | payer MEDICARE ==
[~2024-05-26] MED LIST changes: +Aspir 8181 MG PO; +CLOP75 PO; +IMODIUM A-D2 M4 PO; +ZEBUTAL 50-3251 EAC1 PO
== END | disposition home or self-care (01) ==
LOC: LAB 18:04 → LAB SHORT 18:04
DX: R30.0 Dysuria (principal)
CPT/HCPCS: 87077; 87086; 87186

== ENCOUNTER 2024-08-27 12:26 | Day surgery (SDC) | payer MEDICARE ==
[~2024-08-27] VITALS: Ht 160 cm; Wt 59.0 kg
[~2024-08-27 12:26] MED LIST changes: +Balanced Salt Epinephrine Irrigation Solution 500 mL IR SCH; +Lidocaine HCl/Pf 1% 5 ML VIAL XX SCH; +Moxifloxacin HCL 0.5 MG/0.1 ML 0.4MLSYR LEFTEYE SCH; +PHENYLEPHRINE\\TROPICAMIDE\\TETRACAINE OPHTHALMIC DILATING SOLN LEFTEYE PRN; +Povidone-Iodine 450 DROP/30 ML Solution LEFTEYE SCH; +Povidone-Iodine 450 DROP/30 ML Solution ONE; +Tetracaine HCl/Pf 0.5% Opth Soln 4 ml ONE; +Triamcinolone Inj Susp 40 MG / ML 1ML Vial INJ SCH; +Triamcinolone Inj Susp 40 MG / ML 1ML Vial ONE
[2024-08-27] MEDS ORDERED: AMLO5 PO (12:45)
[2024-08-27] MEDS ORDERED: Bentyl10 MG/ML IM (12:45)
[2024-08-27] MEDS ORDERED: NS 500 ML IV ONE (12:51)
[2024-08-27] MEDS ORDERED: Midazolam HCl 1MG / ML 2ML Vial ONE (13:06)
[2024-08-27] MEDS ORDERED: FentaNYL Citrate 50 MCG/ML 2 ML Injection ONE (13:06)
[2024-08-27 13:43] VITALS: BP 145/59
== END 2024-08-27 13:55 | disposition home or self-care (01) ==
LOC: ORSCSDS 12:26
PROVIDERS: Ophthalmology
PROC: 08RK3JZ Replacement of Left Lens with Synthetic Substitute, Percutaneous Approach (ICD-10-PCS; principal; 2024-08-27 13:30)
DX: E11.36 Type 2 diabetes mellitus with diabetic cataract (principal); H25.813 Combined forms of age-related cataract, bilateral; Z87.891 Personal history of nicotine dependence; I25.10 Atherosclerotic heart disease of native coronary artery without angina pectoris; H35.30 Unspecified macular degeneration; I25.2 Old myocardial infarction; I10 Essential (primary) hypertension; Z79.82 Long term (current) use of aspirin; Z79.899 Other long term (current) drug therapy
CPT/HCPCS: 82947; J2250; J3010; J3301; J7040; V2632

== ENCOUNTER 2024-09-03 12:19 | Day surgery (SDC) | payer MEDICARE ==
[~2024-09-03] VITALS: Ht 160 cm; Wt 59.0 kg
[~2024-09-03 12:19] MED LIST changes: +Bentyl10 MG/ML IM; +Midazolam HCl 1MG / ML 2ML Vial ONE; -Moxifloxacin HCL 0.5 MG/0.1 ML 0.4MLSYR LEFTEYE SCH; +Moxifloxacin HCL 0.5 MG/0.1 ML 0.4MLSYR RIGHTEYE SCH; +NS 500 ML IV ONE; -PHENYLEPHRINE\\TROPICAMIDE\\TETRACAINE OPHTHALMIC DILATING SOLN LEFTEYE PRN; +PHENYLEPHRINE\\TROPICAMIDE\\TETRACAINE OPHTHALMIC DILATING SOLN RIGHTEYE PRN; -Povidone-Iodine 450 DROP/30 ML Solution LEFTEYE SCH; +Povidone-Iodine 450 DROP/30 ML Solution RIGHTEYE SCH
[2024-09-03] MEDS ORDERED: NS 500 ML IV ONE (13:27)
[2024-09-03] MEDS ORDERED: FentaNYL Citrate 50 MCG/ML 2 ML Injection ONE (13:46)
[2024-09-03 14:46] VITALS: BP 142/52
[2024-09-03] MEDS ORDERED: Acetaminophen 500 MG Tab ONE (14:49)
== END 2024-09-03 14:59 | disposition home or self-care (01) ==
LOC: ORSCSDS 12:19
PROVIDERS: Ophthalmology
PROC: 08RJ3JZ Replacement of Right Lens with Synthetic Substitute, Percutaneous Approach (ICD-10-PCS; principal; 2024-09-03 14:00)
DX: E11.36 Type 2 diabetes mellitus with diabetic cataract (principal); H25.811 Combined forms of age-related cataract, right eye; Z96.1 Presence of intraocular lens; I25.10 Atherosclerotic heart disease of native coronary artery without angina pectoris; I10 Essential (primary) hypertension; I25.2 Old myocardial infarction; H35.30 Unspecified macular degeneration; Z87.891 Personal history of nicotine dependence; Z79.899 Other long term (current) drug therapy
CPT/HCPCS: 82947; A9270; J2250; J3010; J3301; J7040; V2632

== ENCOUNTER 2025-03-11 19:28 | Emergency (ER) | payer MEDICARE ==
[~2025-03-11] VITALS: Ht 160 cm; Wt 59.0 kg
[~2025-03-11 19:28] MED LIST changes: -Balanced Salt Epinephrine Irrigation Solution 500 mL IR SCH; -Lidocaine HCl/Pf 1% 5 ML VIAL XX SCH; -Midazolam HCl 1MG / ML 2ML Vial ONE; -Moxifloxacin HCL 0.5 MG/0.1 ML 0.4MLSYR RIGHTEYE SCH; -NS 500 ML IV ONE; -PHENYLEPHRINE\\TROPICAMIDE\\TETRACAINE OPHTHALMIC DILATING SOLN RIGHTEYE PRN; -Povidone-Iodine 450 DROP/30 ML Solution ONE; -Povidone-Iodine 450 DROP/30 ML Solution RIGHTEYE SCH; -Tetracaine HCl/Pf 0.5% Opth Soln 4 ml ONE; -Triamcinolone Inj Susp 40 MG / ML 1ML Vial INJ SCH; -Triamcinolone Inj Susp 40 MG / ML 1ML Vial ONE
[2025-03-11] MEDS ORDERED: Ondansetron 4 MG SoluTab SL ONE (21:00)
[2025-03-11] MEDS ORDERED: Lidocaine 4% 1 Patch TOP ONE (21:00)
[2025-03-11 22:00] VITALS: BP 168/69
[2025-03-11] MEDS ORDERED: RX Prepack 6 Tabs Oxycodone 5mg UD ONE (22:15)
[2025-03-11] MEDS ORDERED: Percocet 5-3251 EACH PO (22:17)
== END 2025-03-11 22:58 | disposition home or self-care (01) ==
LOC: ER 19:28
DX: S22.42XA Multiple fractures of ribs, left side, initial encounter for closed fracture (principal); Z88.0 Allergy status to penicillin; Z79.82 Long term (current) use of aspirin; E11.9 Type 2 diabetes mellitus without complications; W18.30XA Fall on same level, unspecified, initial encounter
CPT/HCPCS: 70450; 71101; 72070; 99284-25; A9270